=== PATIENT | female | born 1980 | race Caucasian/White ===

== ENCOUNTER 2017-12-13 08:06 | Emergency (ER) | payer OTHER ==
[~2017-12-13] VITALS: Ht 170.2 cm; Wt 72.6 kg
[~2017-12-13 08:06] MED LIST: ACET500; ACET500 PO; ALBIPROI INH; ALBU90OI INH; ALBU90OI61 INH; AMOCLA500 PO; ATOM10; ATOM40; AUGMENTIN; AZIT250 PO; BC PILLS; BCP; BCP PO; BENZ100A PO; BUPR150T2; CEFD300 PO; CEFP200 PO; CEPH500 PO; CIPR500 PO; CLIN300 PO; CODACE30 PO; CYCL10 PO; Crutch1 EACH MISC; DICL75ER PO; DULO30 PO; ERYT250 PO; GABA100 PO; GABA300 PO; GUAPHELA PO; HYDACE5 PO; HYDR1TAB94 PO; IBUP200; IBUP600 PO; IBUP800 PO; LORA1 PO; MEDR150I; META800 PO; METO10 PO; METPHE10; Mobic15 MG PO; NAPR375 PO; NAPR500 PO; NAPR550 PO; NITR100CA PO; OXYACE5T PO; PARO10; PARO20; PARO20 PO; PENVK500 PO; PHENA200 PO; PHENY100ER PO; PRED10 PO; PRED20 PO; PROCODE120 PO; PRODEXEL PO; PROM25 PO; Pyridium200 MG PO; RXCLIN PO; RXCODACET PO; RXHYDACE PO; RXMETA800 PO; RXOXYACE PO; RXPENVK250 PO; RXSULTRIDS PO; SULTRIDS PO; SULTRISS PO; TRAM50; TRAM50 PO; Ultram50 MG PO; YASMIN; YAZ BCP; [UNRECOGNIZED DRUG - CODE]; [UNRECOGNIZED DRUG - OTHER]; [UNRECOGNIZED DRUG - OTHER]
[2017-12-13] MEDS ORDERED: METPRE4DP PO (10:11)
[2017-12-13] MEDS ORDERED: Ultram50 MG PO (10:11)
[2017-12-13] MEDS ORDERED: Robaxin-750750 MG PO (10:11)
== END 2017-12-13 10:50 | disposition home or self-care (01) ==
LOC: ER 08:06
DX: M54.12 Radiculopathy, cervical region (principal); J45.909 Unspecified asthma, uncomplicated; Z88.1 Allergy status to other antibiotic agents; Z88.0 Allergy status to penicillin; Z88.8 Allergy status to other drugs, medicaments and biological substances; Z79.899 Other long term (current) drug therapy
CPT/HCPCS: 72040; 73030; 99284

== ENCOUNTER 2018-01-28 23:42 | Observation (INO) | payer OTHER ==
[~2018-01-28] VITALS: Ht 172.7 cm; Wt 72.6 kg
[~2018-01-28 23:42] MED LIST changes: +METPRE4DP PO; +Robaxin-750750 MG PO
[2018-01-29 00:38] LABS: BASOPHILS ABSOLUTE AUTO 0.05 K/mm3 (0.00-0.23); BASOPHILS PERCENT AUTO 0 % (0-2); EOSINOPHILS ABSOLUTE AUTO 0.16 K/mm3 (0.00-0.68); EOSINOPHILS PERCENT AUTO 1 % (0-6); Hematocrit 45.1 % (33.0-51.0); IMMATURE GRAN ABSOLUTE AUTO 0.04 K/mm3 (0.00-0.10); IMMATURE GRAN PERCENT AUTO 0 % (0-1); LYMPHOCYTES ABSOLUTE AUTO 3.99 K/mm3 (0.84-5.20); LYMPHOCYTES PERCENT AUTO 31 % (21-46); MONOCYTES ABSOLUTE AUTO 1.13 K/mm3 (0.16-1.47); MONOCYTES PERCENT AUTO 9 % (4-13); Mean Corpuscular HGB 34.4 pg (26.0-34.0); Mean Corpuscular HGB Conc 33.3 g/dL (31.5-36.5); Mean Corpuscular Volume 103 fL (80-100); Mean Platelet Volume 10.2 fL (9.1-12.4); NEUTROPHILS ABSOLUTE AUTO 7.48 K/mm3 (1.96-9.15); NEUTROPHILS PERCENT AUTO 58 % (41-73); Platelet Count 243 K/mm3 (150-400); RDW Coefficient Variation 13.4 % (11.7-14.2); RDW Standard Deviation 52.2 fL (35.1-46.3); Red Blood Cell Count 4.36 M/mm3 (3.80-5.20); White Blood Cell Count 12.85 K/mm3 (4.00-11.30)
[2018-01-29 00:46] LABS: U Amphetamine Screen Not Detected; U Barbituate Screen Not Detected; U Benzodiazapine Screen Not Detected; U Buprenorphine Screen Not Detected; U Cannabinoids Screen DETECTED; U Cocaine Screen Not Detected; U Methadone Screen Not Detected; U Methamphetamine Screen Not Detected; U Opiates Screen Not Detected; U Oxycodone Screen Not Detected; U Phencyclidine Screen Not Detected; U Propoxyphene Screen Not Detected
[2018-01-29 00:55] LABS: Alanine Aminotransfer (ALT/SGP 34 U/L (12-78); Albumin, Blood 4.2 g/dL (3.4-5.0); Alk Phos 73 U/L (50-136); Anion Gap 8 mmol/L (6-16); Aspartate Aminotrans (AST/SGOT 21 U/L (12-37); Bilirubin, Total 0.2 mg/dL (0.1-1.0); Blood Urea Nitrogen 10 mg/dL (8-24); Bun/Creatinine Ratio 17.3 (12.0-20.0); CO2, Blood 22 mmol/L (21-32); Calcium, Blood 8.9 mg/dL (8.5-10.1); Chloride, Blood 111 mmol/L (98-108); Creatinine, Blood 0.58 mg/dL (0.40-1.00); Glomerular Filtration Rate >60 (60-); Glucose, Blood 93 mg/dL (70-99); Salicylate 6.1 mg/dL (2.8-20.0); Sodium, Blood 141 mmol/L (136-145); Total Protein, Blood 8.2 g/dL (6.4-8.2)
[2018-01-29 01:02] LABS: Ethanol (Alcohol), Blood, Med 302 mg/dL
[2018-01-29 01:03] LABS: Acetaminophen, Random <2.0 ug/mL (10.0-30.0)
[2018-01-29] MEDS ORDERED: BACL10 PO (11:32)
[2018-01-29] MEDS ORDERED: Diclofenac Sodi50 MG PO (11:33)
== END 2018-01-30 16:01 | disposition home or self-care (01) ==
LOC: ER 23:42 → EOR 23:43
PROVIDERS: Emergency Medicine
DX: S51.812A Laceration without foreign body of left forearm, initial encounter (principal); F10.129 Alcohol abuse with intoxication, unspecified; F32.9 Major depressive disorder, single episode, unspecified; J45.909 Unspecified asthma, uncomplicated; G43.909 Migraine, unspecified, not intractable, without status migrainosus; M79.7 Fibromyalgia; F17.210 Nicotine dependence, cigarettes, uncomplicated; Z88.0 Allergy status to penicillin; Z88.1 Allergy status to other antibiotic agents; Z88.8 Allergy status to other drugs, medicaments and biological substances; Z79.1 Long term (current) use of non-steroidal anti-inflammatories (NSAID); Y90.8 Blood alcohol level of 240 mg/100 ml or more; X78.0XXA Intentional self-harm by sharp glass, initial encounter
CPT/HCPCS: 12002; 36415; 80053; 81025; 85025; 99285; G0378; G0480; Q3014

== ENCOUNTER 2018-02-08 19:45 | Observation (INO) | payer OTHER ==
[~2018-02-08] VITALS: Ht 170.2 cm; Wt 63.5 kg
[~2018-02-08 19:45] MED LIST changes: +BACL10 PO; +Diclofenac Sodi50 MG PO
[2018-02-08 20:39] LABS: BASOPHILS ABSOLUTE AUTO 0.05 K/mm3 (0.00-0.23); BASOPHILS PERCENT AUTO 1 % (0-2); EOSINOPHILS ABSOLUTE AUTO 0.04 K/mm3 (0.00-0.68); EOSINOPHILS PERCENT AUTO 1 % (0-6); Hematocrit 48.4 % (33.0-51.0); IMMATURE GRAN ABSOLUTE AUTO 0.02 K/mm3 (0.00-0.10); IMMATURE GRAN PERCENT AUTO 0 % (0-1); LYMPHOCYTES ABSOLUTE AUTO 2.48 K/mm3 (0.84-5.20); LYMPHOCYTES PERCENT AUTO 31 % (21-46); MONOCYTES ABSOLUTE AUTO 0.94 K/mm3 (0.16-1.47); MONOCYTES PERCENT AUTO 12 % (4-13); Mean Corpuscular HGB 34.3 pg (26.0-34.0); Mean Corpuscular HGB Conc 33.1 g/dL (31.5-36.5); Mean Corpuscular Volume 104 fL (80-100); NEUTROPHILS ABSOLUTE AUTO 4.36 K/mm3 (1.96-9.15); NEUTROPHILS PERCENT AUTO 55 % (41-73); Platelet Count 217 K/mm3 (150-400); RDW Standard Deviation 50.4 fL (35.1-46.3); Red Blood Cell Count 4.66 M/mm3 (3.80-5.20); White Blood Cell Count 7.89 K/mm3 (4.00-11.30)
[2018-02-08 21:01] LABS: Alanine Aminotransfer (ALT/SGP 71 U/L (12-78); Albumin, Blood 4.3 g/dL (3.4-5.0); Albumin/Globulin Ratio 1.2 (0.8-1.8); Alk Phos 80 U/L (50-136); Anion Gap 10 mmol/L (6-16); Aspartate Aminotrans (AST/SGOT 66 U/L (12-37); Bilirubin, Total 0.3 mg/dL (0.1-1.0); Blood Urea Nitrogen 12 mg/dL (8-24); Bun/Creatinine Ratio 19.3 (12.0-20.0); CO2, Blood 25 mmol/L (21-32); Calcium, Blood 8.8 mg/dL (8.5-10.1); Chloride, Blood 107 mmol/L (98-108); Creatinine, Blood 0.62 mg/dL (0.40-1.00); Globulin, Blood 3.7 g/dL (2.2-4.0); Glomerular Filtration Rate >60 (60-); Glucose, Blood 77 mg/dL (70-99); Potassium, Blood 4.7 mmol/L (3.5-5.5); Salicylate 7.1 mg/dL (2.8-20.0); Sodium, Blood 142 mmol/L (136-145)
[2018-02-08 21:07] LABS: Acetaminophen, Random <2.0 ug/mL (10.0-30.0); Ethanol (Alcohol), Blood, Med 333 mg/dL
[2018-02-08 21:34] LABS: Source, Urine Clean Catch
[2018-02-08 21:41] LABS: Bilirubin, Urine Neg (Neg); Blood, Urine 2+ (Neg); Glucose Qualitative, Urine Neg (Neg); Ketones, Urine 1+ (Neg); Leukocyte Esterase, Urine Neg (Neg); Nitrite, Urine Neg (Neg); Protein, Urine Neg (Neg); Urobilinogen, Urine NORM (Normal)
[2018-02-08 21:49] LABS: Appearance, Urine Clear (Clear); Color, Urine Yellow (P-Yellow)
[2018-02-08 21:52] LABS: Red Blood Cells, Urine 0-2 /hpf (0-2)
[2018-02-08 21:54] LABS: Bacteria Mod /hpf; Squamous Epithelial Cells Mod /hpf (Few)
[2018-02-08 21:57] LABS: U Amphetamine Screen Not Detected; U Barbituate Screen Not Detected; U Benzodiazapine Screen Not Detected; U Buprenorphine Screen Not Detected; U Cannabinoids Screen Not Detected; U Cocaine Screen Not Detected; U Methadone Screen Not Detected; U Methamphetamine Screen Not Detected; U Opiates Screen Not Detected; U Oxycodone Screen Not Detected; U Phencyclidine Screen Not Detected; U Propoxyphene Screen Not Detected
== END 2018-02-09 17:13 | disposition home or self-care (01) ==
LOC: ER 19:45 → EOR 19:46
PROVIDERS: Emergency Medicine
DX: R45.851 Suicidal ideations (principal); F10.129 Alcohol abuse with intoxication, unspecified; J45.909 Unspecified asthma, uncomplicated; G43.909 Migraine, unspecified, not intractable, without status migrainosus; M79.7 Fibromyalgia; F17.210 Nicotine dependence, cigarettes, uncomplicated; Z88.0 Allergy status to penicillin; Z88.1 Allergy status to other antibiotic agents; Y90.8 Blood alcohol level of 240 mg/100 ml or more
CPT/HCPCS: 36415; 80053; 81001; 81025; 84443; 85025; 87077; 87086; 87186; 99285; G0378; G0480